=== PATIENT | male | born 1955 | race Caucasian/White ===

== ENCOUNTER → 2020-04-16 | Outpatient (CLI) | payer MEDICARE ==
[~2020-04-16] MED LIST: ALDACTONE25 MG PO; ASPIRIN EC81 MG PO; CARVEDILOL12.5 MG PO; CARVEDILOL3.125 MG PO; CIPRO500 MG PO; CLARITIN 10MG T10 MG PO; CO Q-10100 MG PO; COREG CR20 MG PO; COZAAR 25MG TAB25 MG PO; CRESTOR10 MG PO; CYANOCOBAL1000 MCG/1 INJ; DOXYCYCLINE HY100 MG PO; ELIQUIS 5 MG TAB5 MG PO; ENOXAPARIN100 MG/1 M SQ; ENTRESTO 24 MG1 EACH PO; FARXIGA10 MG PO; FINASTERIDE5 MG PO; FISH OIL 500 M1 EAC2 PO; FLOMAX 0.4 MG0.4 MG PO; HUMALOG 10100 UNITS/ SC; HUMALOG100 UNIT/3 SC; HYDROCODON-ACE1 EAC6 PO; IMDUR ER TAB 6060 MG PO; IPRAT-ALBUT 0.5-3 ML INH; LANTUS INS100 UTS/M1 SQ; LANTUS100 UNIT/1 SQ; LASIX TAB 20 MG20 MG PO; MONTELUKAST SOD10 MG PO; MUCINEX600 MG PO; NITROGLYCERIN0.4 MG SL; PREGABALIN75 MG PO; PROTONIX 20 MG20 MG PO; RANOLAZINE ER1000 MG PO; SYMBICORT 160-1 INHA INH; UNASYN 1.5 GM1.5 GM IV; VIBRAMYCIN 100100 MG PO
== END ==
LOC: WCC 13:21
PROC: 0JBQ0ZZ Excision of Right Foot Subcutaneous Tissue and Fascia, Open Approach (ICD-10-PCS; principal; 2020-04-16)
DX: E11.621 Type 2 diabetes mellitus with foot ulcer (principal); L97.522 Non-pressure chronic ulcer of other part of left foot with fat layer exposed; L97.512 Non-pressure chronic ulcer of other part of right foot with fat layer exposed; E11.52 Type 2 diabetes mellitus with diabetic peripheral angiopathy with gangrene; I96 Gangrene, not elsewhere classified; I25.119 Atherosclerotic heart disease of native coronary artery with unspecified angina pectoris; I11.0 Hypertensive heart disease with heart failure; I50.9 Heart failure, unspecified; E11.36 Type 2 diabetes mellitus with diabetic cataract; H26.9 Unspecified cataract; E11.40 Type 2 diabetes mellitus with diabetic neuropathy, unspecified; I25.2 Old myocardial infarction; G89.29 Other chronic pain; Z86.718 Personal history of other venous thrombosis and embolism; Z79.891 Long term (current) use of opiate analgesic; Z79.4 Long term (current) use of insulin; Z79.2 Long term (current) use of antibiotics; Z79.01 Long term (current) use of anticoagulants; Z79.899 Other long term (current) drug therapy
CPT/HCPCS: 87070; 87205

== ENCOUNTER → 2020-04-23 | Outpatient (CLI) | payer MEDICARE | LOC: WCC 13:28 | PROC: 0KBW0ZZ Excision of Left Foot Muscle, Open Approach (ICD-10-PCS; principal; 2020-04-23) | PROC: 0KBV0ZZ Excision of Right Foot Muscle, Open Approach (ICD-10-PCS; 2020-04-23) | DX: E11.621 Type 2 diabetes mellitus with foot ulcer (principal); L97.523 Non-pressure chronic ulcer of other part of left foot with necrosis of muscle; L97.513 Non-pressure chronic ulcer of other part of right foot with necrosis of muscle; E11.52 Type 2 diabetes mellitus with diabetic peripheral angiopathy with gangrene; I96 Gangrene, not elsewhere classified; I82.509 Chronic embolism and thrombosis of unspecified deep veins of unspecified lower extremity; E11.40 Type 2 diabetes mellitus with diabetic neuropathy, unspecified; E11.36 Type 2 diabetes mellitus with diabetic cataract; H26.9 Unspecified cataract; I25.119 Atherosclerotic heart disease of native coronary artery with unspecified angina pectoris; I11.0 Hypertensive heart disease with heart failure; I50.9 Heart failure, unspecified; I25.2 Old myocardial infarction; Z79.4 Long term (current) use of insulin; Z79.2 Long term (current) use of antibiotics; Z79.01 Long term (current) use of anticoagulants; Z79.891 Long term (current) use of opiate analgesic; Z79.899 Other long term (current) drug therapy ==

== ENCOUNTER → 2020-05-02 | Outpatient (CLI) | payer MEDICARE | LOC: WCC 13:00 | DX: E11.621 Type 2 diabetes mellitus with foot ulcer (principal); L97.509 Non-pressure chronic ulcer of other part of unspecified foot with unspecified severity; I82.509 Chronic embolism and thrombosis of unspecified deep veins of unspecified lower extremity; E08.40 Diabetes mellitus due to underlying condition with diabetic neuropathy, unspecified; M79.605 Pain in left leg; M79.604 Pain in right leg | CPT/HCPCS: 97597 ==

== ENCOUNTER → 2020-05-07 | Outpatient (CLI) | payer MEDICARE | LOC: WCC 14:54 | PROC: 0KBW0ZZ Excision of Left Foot Muscle, Open Approach (ICD-10-PCS; principal; 2020-05-07) | PROC: 0KBV0ZZ Excision of Right Foot Muscle, Open Approach (ICD-10-PCS; 2020-05-07) | DX: E11.621 Type 2 diabetes mellitus with foot ulcer (principal); L97.523 Non-pressure chronic ulcer of other part of left foot with necrosis of muscle; L97.513 Non-pressure chronic ulcer of other part of right foot with necrosis of muscle; E11.52 Type 2 diabetes mellitus with diabetic peripheral angiopathy with gangrene; I96 Gangrene, not elsewhere classified; E11.40 Type 2 diabetes mellitus with diabetic neuropathy, unspecified; E11.36 Type 2 diabetes mellitus with diabetic cataract; H26.9 Unspecified cataract; I11.0 Hypertensive heart disease with heart failure; I50.9 Heart failure, unspecified; I25.2 Old myocardial infarction; I25.119 Atherosclerotic heart disease of native coronary artery with unspecified angina pectoris; I82.509 Chronic embolism and thrombosis of unspecified deep veins of unspecified lower extremity; Z79.891 Long term (current) use of opiate analgesic; Z79.4 Long term (current) use of insulin; Z79.2 Long term (current) use of antibiotics; Z79.01 Long term (current) use of anticoagulants; Z79.899 Other long term (current) drug therapy ==

== ENCOUNTER → 2020-05-14 | Outpatient (CLI) | payer MEDICARE | LOC: WCC 14:44 | DX: E11.621 Type 2 diabetes mellitus with foot ulcer (principal); I82.509 Chronic embolism and thrombosis of unspecified deep veins of unspecified lower extremity; E08.40 Diabetes mellitus due to underlying condition with diabetic neuropathy, unspecified; M79.604 Pain in right leg; M79.605 Pain in left leg; E11.51 Type 2 diabetes mellitus with diabetic peripheral angiopathy without gangrene ==

== ENCOUNTER 2020-05-17 06:13 | Inpatient (IN) | payer MEDICARE ==
[~2020-05-17] VITALS: Ht 180.3 cm; Wt 106.6 kg
[~2020-05-17 06:13] MED LIST changes: -ASPIRIN EC81 MG PO; -CARVEDILOL12.5 MG PO; -CARVEDILOL3.125 MG PO; -CO Q-10100 MG PO; -CRESTOR10 MG PO; -ELIQUIS 5 MG TAB5 MG PO; -ENOXAPARIN100 MG/1 M SQ; -ENTRESTO 24 MG1 EACH PO; -FISH OIL 500 M1 EAC2 PO; -FLOMAX 0.4 MG0.4 MG PO; -HUMALOG 10100 UNITS/ SC; -LANTUS INS100 UTS/M1 SQ; -UNASYN 1.5 GM1.5 GM IV; -VIBRAMYCIN 100100 MG PO
[2020-05-17 07:48] LABS: HEMOGLOBIN 16.5 gm/dl (14.0-17.5); RED BLOOD COUNT 5.7 M/UL (4.20-5.50)
[2020-05-17 08:11] LABS: BUN/CREATININE RATIO 26 (0-10)
[2020-05-17] MEDS ORDERED: ENTRESTO 24 MG1 EACH PO (09:56)
[2020-05-17] MEDS ORDERED: FISH OIL 500 M1 EAC2 PO (09:59)
[2020-05-17] MEDS ORDERED: CO Q-10100 MG PO (10:00)
--- NOTE | 2020-05-17 18:30 | NUR ---
PATIENT COMPLAINING OF SEVERE PAIN IN THE SUPRAPUBIC REGION AT THIS TIME STATING THAT HE FEELS LIKE HE IS GOING TO BUST. PATIENT STATES THAT HE NEEDS TO URINATE AT THIS TIME. PATIENT HAS A [employer] CATHETER IN PLACE THAT IS DRAINING WELL. BLADDER SCAN PERFORMED WITH A RESULT OF 0ML. WAS CONTACTED AND SHE GAVE ORDERS FOR PAIN MEDICATION. PATIENT GROIN SITE IS NOTED TO BE SOFT WITH NO ABNORMAL BLEEDING NOTED AT THIS TIME. MD CUELLAR.
[2020-05-18 06:42] LABS: HEMOGLOBIN 16.2 gm/dl (14.0-17.5); RED BLOOD COUNT 5.45 M/UL (4.20-5.50)
[2020-05-18 07:12] LABS: BUN/CREATININE RATIO 24 (0-10)
[2020-05-18 19:51] LABS: HEMOGLOBIN 15.9 gm/dl (14.0-17.5); RED BLOOD COUNT 5.32 M/UL (4.20-5.50)
[2020-05-19 05:25] LABS: BUN/CREATININE RATIO 26 (0-10)
[2020-05-20 05:03] LABS: HEMOGLOBIN 15.2 gm/dl (14.0-17.5); RED BLOOD COUNT 5.12 M/UL (4.20-5.50); WHITE BLOOD COUNT 8.8 K/UL (4.5-11.0)
[2020-05-20 05:24] LABS: BUN/CREATININE RATIO 21 (0-10)
--- NOTE | 2020-05-20 15:37 | NUR ---
SPOKE WITH DR. BRINK OVER THE PHONE. SHE AFFIRMED THAT PATIENT COULD AMBULATE TO CHAIR, BEDSIDE OR BATHROOM. DR. BRINK ALSO RECOMMENDED CONTACTING PODIETRY CONCERNING OFFLOADER. DR. MATHEW THOUGHT IT WOULD BE PERMISSABLE TO ALLOW SOME MOBILITY UNTIL PODIETRY COULD BE CONTACTED THURSDAY. BEDSIDE COMMODE PLACED IN PATIENTS ROOM.
[2020-05-21 06:16] LABS: HEMOGLOBIN 15.9 gm/dl (14.0-17.5); RED BLOOD COUNT 5.28 M/UL (4.20-5.50); WHITE BLOOD COUNT 10.1 K/UL (4.5-11.0)
[2020-05-21 06:41] LABS: BUN/CREATININE RATIO 21 (0-10)
--- NOTE | 2020-05-22 09:33 | NUR ---
SWABBED PATIENT FOR COVID SAVANNAH TEST FOR SURGERY
--- NOTE | 2020-05-22 15:37 | NUR ---
PATIENT RETURNED FROM SURGERY AT 15:15. ALERT AND ORIENTED. REPORTS NO PAIN AT THIS TIME. WILL CONTINUE TO MONITOR. POST SURGERY VITALS TAKEN EVERY 15 MINUTES PER PROTICOL.
[2020-05-24 03:18] LABS: HEMOGLOBIN 15.4 gm/dl (14.0-17.5); RED BLOOD COUNT 5.18 M/UL (4.20-5.50); WHITE BLOOD COUNT 11.2 K/UL (4.5-11.0)
[2020-05-24 04:09] LABS: BUN/CREATININE RATIO 25 (0-10)
[2020-05-25] MEDS ORDERED: DOXYCYCLINE HY100 MG PO (12:26)
[2020-05-25] MEDS ORDERED: HUMALOG 10100 UNITS/ SC (12:26)
[2020-05-25] MEDS ORDERED: CIPRO500 MG PO (12:26)
[2020-05-25] MEDS ORDERED: CARVEDILOL12.5 MG PO (12:26)
[2020-05-25] MEDS ORDERED: ASPIRIN EC81 MG PO (12:26)
[2020-05-25] MEDS ORDERED: FLOMAX 0.4 MG0.4 MG PO (12:26)
[2020-05-25] MEDS ORDERED: LANTUS INS100 UTS/M1 SQ (12:26)
[2020-06-10] MEDS ORDERED: ELIQUIS 5 MG TAB5 MG PO (02:44)
== END 2020-05-25 14:15 | disposition home or self-care (01) | DRG 253 ==
LOC: ER1 06:13 → CDU 08:21 → MED SURG 4 08:21 → CDU 15:34 → MED SURG 4 17:50
PROVIDERS: Emergency Medicine; Internal Medicine; Physician Assistant Medical; ADMIT Internal Medicine Infectious Disease
PROC: 047U3Z1 Dilation of Left Peroneal Artery using Drug-Coated Balloon, Percutaneous Approach (ICD-10-PCS; 2020-05-17)
PROC: 047N3Z1 Dilation of Left Popliteal Artery using Drug-Coated Balloon, Percutaneous Approach (ICD-10-PCS; 2020-05-17)
PROC: 047Q3Z1 Dilation of Left Anterior Tibial Artery using Drug-Coated Balloon, Percutaneous Approach (ICD-10-PCS; 2020-05-17)
PROC: 047W3ZZ Dilation of Left Foot Artery, Percutaneous Approach (ICD-10-PCS; 2020-05-18)
PROC: 047V3ZZ Dilation of Right Foot Artery, Percutaneous Approach (ICD-10-PCS; 2020-05-18)
PROC: 0Y6Q0Z3 Detachment at Left 1st Toe, Low, Open Approach (ICD-10-PCS; principal; 2020-05-23)
PROC: 0Y6P0Z3 Detachment at Right 1st Toe, Low, Open Approach (ICD-10-PCS; 2020-05-23)
DX: E11.52 Type 2 diabetes mellitus with diabetic peripheral angiopathy with gangrene (principal); I96 Gangrene, not elsewhere classified; E87.1 Hypo-osmolality and hyponatremia; E11.621 Type 2 diabetes mellitus with foot ulcer; Z20.822 Contact with and (suspected) exposure to COVID-19; L97.529 Non-pressure chronic ulcer of other part of left foot with unspecified severity; L97.519 Non-pressure chronic ulcer of other part of right foot with unspecified severity; I25.10 Atherosclerotic heart disease of native coronary artery without angina pectoris; I10 Essential (primary) hypertension; J60 Coalworker's pneumoconiosis; N40.0 Benign prostatic hyperplasia without lower urinary tract symptoms; E66.01 Morbid (severe) obesity due to excess calories; K59.00 Constipation, unspecified; M19.90 Unspecified osteoarthritis, unspecified site; D64.9 Anemia, unspecified; I44.7 Left bundle-branch block, unspecified; Z79.82 Long term (current) use of aspirin; Z79.4 Long term (current) use of insulin; Z79.899 Other long term (current) drug therapy; Z95.1 Presence of aortocoronary bypass graft; I25.2 Old myocardial infarction; Z86.718 Personal history of other venous thrombosis and embolism; Z95.2 Presence of prosthetic heart valve; Z68.32 Body mass index [BMI] 32.0-32.9, adult; Z90.49 Acquired absence of other specified parts of digestive tract; Z82.49 Family history of ischemic heart disease and other diseases of the circulatory system
CPT/HCPCS: 36415; 71045; 73630; 75625; 80048; 80053; 80202; 82550; 82553; 82962; 83036; 83735; 83874; 84484; 85025; 85027; 85610; 85730; 86850; 86900; 86901; 87040; 87070; 87205; 87635; 93005; 94760; 96365; 96366; 96368; 96372; 96375; 99284; C1725; C1769; C1887; C1894; J1100; J1170; J1644; J2001; J2270; J2405; J2543; J2704; J2710; J2720; J2795; J3010; J3370; J7040; J7050; J7070; J7120; Q4133; Q9962; U0002; U0003

== ENCOUNTER → 2020-06-04 | Outpatient (CLI) | payer MEDICARE ==
[~2020-06-04] MED LIST changes: +ASPIRIN EC81 MG PO; +CARVEDILOL12.5 MG PO; +CARVEDILOL3.125 MG PO; +CO Q-10100 MG PO; +CRESTOR10 MG PO; +ELIQUIS 5 MG TAB5 MG PO; +ENOXAPARIN100 MG/1 M SQ; +ENTRESTO 24 MG1 EACH PO; +FISH OIL 500 M1 EAC2 PO; +FLOMAX 0.4 MG0.4 MG PO; +HUMALOG 10100 UNITS/ SC; +LANTUS INS100 UTS/M1 SQ; +UNASYN 1.5 GM1.5 GM IV; +VIBRAMYCIN 100100 MG PO
[2020-06-04 14:25] LABS: HEMOGLOBIN 17.6 gm/dl (14.0-17.5); RED BLOOD COUNT 5.82 M/UL (4.20-5.50); WHITE BLOOD COUNT 11.3 K/UL (4.5-11.0)
[2020-06-04 14:43] LABS: BUN/CREATININE RATIO 25 (0-10)
== END ==
LOC: OPSV2 13:00
PROVIDERS: Surgery
DX: Z01.818 Encounter for other preprocedural examination (principal); R94.31 Abnormal electrocardiogram [ECG] [EKG]
CPT/HCPCS: 36415; 71046; 80053; 81001; 85025; 85610; 85730; 86850; 86900; 86901; 93005

== ENCOUNTER 2020-06-05 06:21 | Observation (INO) | payer MEDICARE ==
[~2020-06-05] VITALS: Ht 180.3 cm; Wt 106.6 kg
[~2020-06-05 06:21] MED LIST changes: -CARVEDILOL3.125 MG PO; -CRESTOR10 MG PO; -ELIQUIS 5 MG TAB5 MG PO; -ENOXAPARIN100 MG/1 M SQ; -UNASYN 1.5 GM1.5 GM IV; -VIBRAMYCIN 100100 MG PO
[2020-06-05] MEDS ORDERED: ENOXAPARIN100 MG/1 M SQ (07:13)
[2020-06-05] MEDS ORDERED: VIBRAMYCIN 100100 MG PO (07:13)
[2020-06-05] MEDS ORDERED: COREG CR20 MG PO (07:17)
[2020-06-05] MEDS ORDERED: HUMALOG100 UNIT/3 SC (07:20)
[2020-06-05] MEDS ORDERED: LANTUS100 UNIT/1 SQ (07:20)
[2020-06-05] MEDS ORDERED: CRESTOR10 MG PO (07:24)
[2020-06-05 15:29] LABS: HEMOGLOBIN 15.1 gm/dl (14.0-17.5); RED BLOOD COUNT 5.13 M/UL (4.20-5.50); WHITE BLOOD COUNT 15.8 K/UL (4.5-11.0)
[2020-06-05 15:51] LABS: BUN/CREATININE RATIO 28 (0-10)
[2020-06-06 05:02] LABS: HEMOGLOBIN 14.2 gm/dl (14.0-17.5); RED BLOOD COUNT 4.8 M/UL (4.20-5.50)
[2020-06-06 05:16] LABS: WHITE BLOOD COUNT 9.4 K/UL (4.5-11.0)
[2020-06-06 05:20] LABS: BUN/CREATININE RATIO 27 (0-10)
[2020-06-06] MEDS ORDERED: CARVEDILOL3.125 MG PO (12:09)
[2020-06-06] MEDS ORDERED: ASPIRIN EC81 MG PO (12:09)
[2020-06-10] MEDS ORDERED: ELIQUIS 5 MG TAB5 MG PO (02:44)
== END 2020-06-06 14:06 | disposition home or self-care (01) ==
LOC: OR 06:21 → EDSTATUS 07:30 → CCU 13:36 → OR 13:47 → CCU 13:47
PROVIDERS: Surgery; ADMIT Internal Medicine
PROC: B41D1ZZ Fluoroscopy of Aorta and Bilateral Lower Extremity Arteries using Low Osmolar Contrast (ICD-10-PCS; principal; 2020-06-05 07:30)
DX: E10.52 Type 1 diabetes mellitus with diabetic peripheral angiopathy with gangrene (principal); I70.261 Atherosclerosis of native arteries of extremities with gangrene, right leg; L97.511 Non-pressure chronic ulcer of other part of right foot limited to breakdown of skin; E10.40 Type 1 diabetes mellitus with diabetic neuropathy, unspecified; I11.0 Hypertensive heart disease with heart failure; I50.20 Unspecified systolic (congestive) heart failure; I25.10 Atherosclerotic heart disease of native coronary artery without angina pectoris; I25.2 Old myocardial infarction; E78.5 Hyperlipidemia, unspecified; J44.9 Chronic obstructive pulmonary disease, unspecified; K21.9 Gastro-esophageal reflux disease without esophagitis; R03.1 Nonspecific low blood-pressure reading; I49.9 Cardiac arrhythmia, unspecified; D75.1 Secondary polycythemia; N40.0 Benign prostatic hyperplasia without lower urinary tract symptoms; E66.01 Morbid (severe) obesity due to excess calories; Z95.1 Presence of aortocoronary bypass graft; Z20.822 Contact with and (suspected) exposure to COVID-19; Z79.4 Long term (current) use of insulin; Z79.899 Other long term (current) drug therapy; Z86.718 Personal history of other venous thrombosis and embolism; Z79.01 Long term (current) use of anticoagulants; Z68.32 Body mass index [BMI] 32.0-32.9, adult; Z95.2 Presence of prosthetic heart valve; Z89.422 Acquired absence of other left toe(s); Z89.421 Acquired absence of other right toe(s)
CPT/HCPCS: 36415; 71045; 75630; 76000; 80048; 82962; 85025; 93005; 94760; C1725; C1769; C1887; C1894; C2623; G0378; J0690; J1644; J2001; J2370; J2405; J2704; J2710; J2720; J3010; J7040; J7050; J7120; P9045; Q9962

== ENCOUNTER 2020-06-11 20:31 | Inpatient (IN) | payer MEDICARE ==
[~2020-06-11] VITALS: Ht 180.3 cm; Wt 106.6 kg
[~2020-06-11 20:31] MED LIST changes: +CARVEDILOL3.125 MG PO; +CRESTOR10 MG PO; +ELIQUIS 5 MG TAB5 MG PO; +ENOXAPARIN100 MG/1 M SQ; +VIBRAMYCIN 100100 MG PO
[2020-06-12 01:28] LABS: HEMOGLOBIN 16.4 gm/dl (14.0-17.5); RED BLOOD COUNT 5.51 M/UL (4.20-5.50); WHITE BLOOD COUNT 11.2 K/UL (4.5-11.0)
[2020-06-12 01:48] LABS: BUN/CREATININE RATIO 29 (0-10)
[2020-06-13 05:16] LABS: BUN/CREATININE RATIO 23 (0-10)
[2020-06-15] MEDS ORDERED: UNASYN 1.5 GM1.5 GM IV (16:18)
== END 2020-06-15 17:08 | disposition home or self-care (01) | DRG 565 ==
LOC: ER1 20:31 → M/S 06-12 01:52 → CDU 06-12 01:52 → M/S 06-12 04:03
PROVIDERS: Internal Medicine Infectious Disease; Physician Assistant; ADMIT Internal Medicine
PROC: 02HV33Z Insertion of Infusion Device into Superior Vena Cava, Percutaneous Approach (ICD-10-PCS; principal; 2020-06-14)
DX: T87.43 Infection of amputation stump, right lower extremity (principal); E10.52 Type 1 diabetes mellitus with diabetic peripheral angiopathy with gangrene; I50.22 Chronic systolic (congestive) heart failure; I25.810 Atherosclerosis of coronary artery bypass graft(s) without angina pectoris; Y83.8 Other surgical procedures as the cause of abnormal reaction of the patient, or of later complication, without mention of misadventure at the time of the procedure; E66.01 Morbid (severe) obesity due to excess calories; Z20.822 Contact with and (suspected) exposure to COVID-19; L03.031 Cellulitis of right toe; I35.0 Nonrheumatic aortic (valve) stenosis; N40.0 Benign prostatic hyperplasia without lower urinary tract symptoms; I11.0 Hypertensive heart disease with heart failure; I77.89 Other specified disorders of arteries and arterioles; D75.1 Secondary polycythemia; J60 Coalworker's pneumoconiosis; E10.42 Type 1 diabetes mellitus with diabetic polyneuropathy; Z79.4 Long term (current) use of insulin; Z86.718 Personal history of other venous thrombosis and embolism; Z79.01 Long term (current) use of anticoagulants; Z95.1 Presence of aortocoronary bypass graft; Z95.2 Presence of prosthetic heart valve; Z90.49 Acquired absence of other specified parts of digestive tract; Z82.49 Family history of ischemic heart disease and other diseases of the circulatory system; Z68.30 Body mass index [BMI] 30.0-30.9, adult
CPT/HCPCS: 36415; 80048; 80053; 82550; 82553; 82607; 82652; 82728; 82962; 83605; 84439; 84443; 84484; 84550; 85025; 85652; 86140; 87040; 93926; 94760; 99284; J0295; J2405; U0002

== ENCOUNTER → 2020-06-19 | Outpatient (CLI) | payer MEDICARE ==
[~2020-06-19] MED LIST changes: +UNASYN 1.5 GM1.5 GM IV
== END ==
LOC: WCC 08:00
DX: E11.621 Type 2 diabetes mellitus with foot ulcer (principal); L97.515 Non-pressure chronic ulcer of other part of right foot with muscle involvement without evidence of necrosis; L97.524 Non-pressure chronic ulcer of other part of left foot with necrosis of bone; E11.42 Type 2 diabetes mellitus with diabetic polyneuropathy; I82.509 Chronic embolism and thrombosis of unspecified deep veins of unspecified lower extremity; M79.672 Pain in left foot; M79.674 Pain in right toe(s); M79.671 Pain in right foot; I70.203 Unspecified atherosclerosis of native arteries of extremities, bilateral legs; I73.89 Other specified peripheral vascular diseases; Z79.4 Long term (current) use of insulin
CPT/HCPCS: G0463

== ENCOUNTER → 2021-10-15 | Outpatient (CLI) | payer MEDICARE | END | disposition home or self-care (01) | LOC: OPSV 07:30 | PROC: 0HRMXK3 Replacement of Right Foot Skin with Nonautologous Tissue Substitute, Full Thickness, External Approach (ICD-10-PCS; principal; 2021-10-15) | DX: L97.516 Non-pressure chronic ulcer of other part of right foot with bone involvement without evidence of necrosis (principal) | CPT/HCPCS: Q4133 ==

== ENCOUNTER → 2021-10-29 | Outpatient (CLI) | payer MEDICARE | END | disposition home or self-care (01) | LOC: OPSV 07:00 | PROC: 0HRMXK3 Replacement of Right Foot Skin with Nonautologous Tissue Substitute, Full Thickness, External Approach (ICD-10-PCS; principal; 2021-10-29) | DX: L97.512 Non-pressure chronic ulcer of other part of right foot with fat layer exposed (principal) | CPT/HCPCS: Q4133 ==

== ENCOUNTER → 2021-11-07 | Outpatient (CLI) | payer MEDICARE | LOC: OPSV 07:11 | DX: L97.512 Non-pressure chronic ulcer of other part of right foot with fat layer exposed (principal) | CPT/HCPCS: G0463 ==

== ENCOUNTER → 2021-11-13 | Outpatient (CLI) | payer MEDICARE | END | disposition home or self-care (01) | LOC: OPSV 07:17 | PROC: 0HRMXJZ Replacement of Right Foot Skin with Synthetic Substitute, External Approach (ICD-10-PCS; principal; 2021-11-13) | DX: E11.621 Type 2 diabetes mellitus with foot ulcer (principal); L97.516 Non-pressure chronic ulcer of other part of right foot with bone involvement without evidence of necrosis; E11.65 Type 2 diabetes mellitus with hyperglycemia; E11.51 Type 2 diabetes mellitus with diabetic peripheral angiopathy without gangrene | CPT/HCPCS: Q4133 ==

== ENCOUNTER → 2021-11-28 | Outpatient (CLI) | payer MEDICARE | END | disposition home or self-care (01) | LOC: OPSV 07:05 | PROC: 0HRMXJZ Replacement of Right Foot Skin with Synthetic Substitute, External Approach (ICD-10-PCS; principal; 2021-11-28) | DX: E11.621 Type 2 diabetes mellitus with foot ulcer (principal); L97.516 Non-pressure chronic ulcer of other part of right foot with bone involvement without evidence of necrosis; E11.51 Type 2 diabetes mellitus with diabetic peripheral angiopathy without gangrene; Z89.411 Acquired absence of right great toe; Z88.1 Allergy status to other antibiotic agents; Z79.4 Long term (current) use of insulin; Z79.82 Long term (current) use of aspirin; Z79.01 Long term (current) use of anticoagulants; Z79.899 Other long term (current) drug therapy | CPT/HCPCS: Q4133 ==

== ENCOUNTER → 2021-12-05 | Outpatient (CLI) | payer MEDICARE | END | disposition home or self-care (01) | LOC: OPSV 07:16 | PROC: 0HRMXJZ Replacement of Right Foot Skin with Synthetic Substitute, External Approach (ICD-10-PCS; principal; 2021-12-05) | DX: L97.516 Non-pressure chronic ulcer of other part of right foot with bone involvement without evidence of necrosis (principal) | CPT/HCPCS: Q4133 ==